=== PATIENT | female | born 1990 | race Caucasian/White ===

== ENCOUNTER 2018-04-16 04:37 | Emergency (ER) | payer SELFPAY | END 2018-04-16 07:01 | disposition left against medical advice (07) | LOC: FTE 04:37 | DX: S00.212A Abrasion of left eyelid and periocular area, initial encounter (principal); S00.03XA Contusion of scalp, initial encounter; Y04.0XXA Assault by unarmed brawl or fight, initial encounter | CPT/HCPCS: 99282 ==